=== PATIENT | female | born 1940 | race Caucasian/White ===

== ENCOUNTER 2018-05-20 15:18 | Outpatient (CLI) | payer MEDICARE ==
--- NOTE | 2018-05-20 17:17 | RAD ---
ABDOMEN 2 VIEWS: HISTORY: Abdominal pain, nausea, and vomiting. COMPARISON: None. FINDINGS: There appear to be right upper quadrant surgical clips. 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 Bilateral iliac stents are present. Dense chondral calcifications project over both renal shadows. Likely moderate renal artery calcific ations. There is what appears to be a right renal arterial stent. IMPRESSION: Extensive calcifications and chronic findings. POS: BERNARD
== END 2018-05-20 15:19 | disposition home or self-care (01) ==
LOC: BICRAD 15:18
PROVIDERS: ATTEND Internal Medicine Gastroenterology
DX: K25.9 Gastric ulcer, unspecified as acute or chronic, without hemorrhage or perforation (principal); K52.9 Noninfective gastroenteritis and colitis, unspecified; K59.00 Constipation, unspecified; R63.4 Abnormal weight loss; R11.2 Nausea with vomiting, unspecified; I25.10 Atherosclerotic heart disease of native coronary artery without angina pectoris; N28.89 Other specified disorders of kidney and ureter
CPT/HCPCS: 74019

== ENCOUNTER 2020-04-20 09:52 | Emergency (ER) | payer MEDICARE ==
[2020-04-20 10:51] LABS: #Basophils 0.1 thou/uL (0.0-0.2); #Eosinphils 0.1 thou/uL (0.0-0.7); #Lymphocytes 2.6 thou/uL (1.20-3.40); #Monocytes 0.8 thou/uL (0.11-0.59); #Neutrophils 5.7 thou/uL (1.40-6.50); %Basophils 0.6 % (0.0-1.0); %Eosinophils 1.6 % (0.0-10.0); %Lymphocytes 28.3 % (21.0-51.0); %Monocytes 8.7 % (0.0-10.0); %Neutrophils 60.8 % (42.0-75.0); Hemoglobin 14.2 g/dL (12.0-16.0); Mean Corpuscular HGB CONC 32.6 g/dL (32.0-36.0); Mean Corpuscular Hemoglobin 29.5 pg (27.0-31.0); Mean Corpuscular Volume 90.6 fL (78.0-98.0); Mean Platelet Volume 7.6 fL (7.4-10.4); Platelet Count 205 thou/uL (130-400); RBC Distribution Width 13.8 % (11.5-14.5); Red Blood Cell (RBC) Count 4.82 mill/uL (4.20-5.40); White Blood Cell (WBC) Count 9.3 thou/uL (4.8-10.8)
[2020-04-20] MEDS ORDERED: Potassium Chloride 20 MEQ TAB ONE (11:08)
[2020-04-20 11:17] LABS: ALT (SGPT) 14 U/L (8-55); AST (SGOT) 18 U/L (5-34); Albumin 3.7 g/dL (3.4-4.8); Alkaline Phosphatase 55 U/L (40-110); Anion Gap 14 mmol/L (10-20); BUN (Urea Nitrogen) 15 mg/dL (9.8-20.1); Bilirubin, Total 0.4 mg/dL (0.2-1.2); Calc. Creatinine Clearance 0 mL/min (70-130); Calcium 8.6 mg/dL (7.8-10.44); Carbon Dioxide 26 mmol/L (23-31); Chloride 102 mmol/L (98-107); Estimated GFR-MDRD 62; Globulin 2.9 g/dL (2.4-3.5); Glucose 200 mg/dL (83-110); Potassium 3.4 mmol/L (3.5-5.1); Protein, Total 6.6 g/dL (6.0-8.3); Sodium 139 mmol/L (136-145)
--- NOTE | 2020-04-20 11:28 | RAD ---
PORTABLE CHEST: HISTORY: Chest pain. COMPARISON: 04/30/2017. FINDINGS: Mild cardiomegaly with aortic calcification and coronary artery calcification appears stable. No significant vascular congestion. Parenchymal stranding and nodularity in the right mid and periph eral lung is again seen. The nodularity is slightly more pronounced today with stranding appearing s table. CP angles are slightly blunted. Postoperative changes are apparent with surgical clips overl [place] the right hilum and right axilla. IMPRESSION: 1. Mild cardiomegaly is stable. 2. Stranding and nodularity in the right mid lung slightly more prominent today. Recommend short-te rm followup to confirm stability. POS: AGW
[2020-04-20] MEDS ORDERED: Potassium Chloride 40 MEQ in Sodium Chloride 0.9% 250 ML 250 ML IVPB SCH (11:30)
[2020-04-20 11:36] LABS: CKMB 1.4 ng/mL (0-6.6)
[2020-04-20] MEDS ORDERED: Ondansetron PF 4 MG/2 ML Vial ONE (14:23)
[2020-04-20] MEDS ORDERED: HYDROcodone/Acetaminophen 5/325 mg Tablet ONE (14:23)
--- NOTE | 2020-04-24 17:08 | EKG ---
Test Reason : Blood Pressure : / mmHG Vent. Rate : 076 BPM Atrial Rate : 076 BPM P-R Int : 144 ms QRS Dur : 082 ms QT Int : 438 ms P-R-T Axes : 032 -08 086 degrees QTc Int : 492 ms Sinus rhythm with Premature supraventricular complexes Left ventricular hypertrophy with repolarization abnormality Prolonged QT Abnormal ECG Confirmed by SANDI MELLO DO ([id number]), publication editor ELMER MEIER ([id number]) on 04/24/2020 5:07:48 PM Referred By: Confirmed By:SANDI MELLO DO
== END 2020-04-20 16:17 | disposition short-term general hospital (02) ==
LOC: ERS 09:52
DX: R07.9 Chest pain, unspecified (principal); E11.9 Type 2 diabetes mellitus without complications; I10 Essential (primary) hypertension; E78.00 Pure hypercholesterolemia, unspecified; Z86.73 Personal history of transient ischemic attack (TIA), and cerebral infarction without residual deficits; Z79.82 Long term (current) use of aspirin; Z79.899 Other long term (current) drug therapy
CPT/HCPCS: 36415; 71045; 80053; 82553; 84484; 85025; 93005; J2405; J3480; J7050